=== PATIENT | male | born 1985 | race Two or more races ===

== ENCOUNTER 2019-06-30 14:18 | Inpatient (IN) | payer OTHER ==
--- NOTE | 2019-06-30 18:13 | HP ---
CIWA Score Nausea/Vomitin-No Nausea/No Vomiting Muscle Tremors: None Anxiety: 1-Mildly Anxious Agitation: 1-Slight > Activity Paroxysmal Sweats: No Perspiration Orientation: 0-Oriented Tacttile Disturbances: 0-None Auditory Disturbances: 0-None Visual Disturbances: 0-None Headache: 0-None Present CIWA-Ar Total Score: 2 - Admission Criteria OASAS Guidelines: Admission for Medically Managed Detox: Requires at least one of the followin. CIWA greater than 12 2. Seizures within the past 24 hours 3. Delirium tremens within the past 24 hours 4. Hallucinations within the past 24 hours 5. Acute intervention needed for co occurring medical disorder 6. Acute intervention needed for co occurring psychiatric disorder 7. Severe withdrawal that cannot be handled at a lower level of care (continued vomiting, continued diarrhea, abnormal vital signs) requiring intravenous medication and/or fluids 8. Admission ROS S - HPI Allergies/Adverse Reactions: Allergies Allergy/AdvReac Type Severity Reaction Status Date / Time heparin AdvReac Intermediate Hives Verified 06/30/19 15:54 History of Present Illness: pt here requesting rehab for cannabis use, reports was at [facility] for chest pain , d/c Saturday06/26/19 , referred to this facility . cannabis - 3.5 gr/day since age 13 , latest use yesterday , reports daily use , latest use yesterday . crystal metamphetamine : 1 gr/day ivdu in khanh hands / arms/ legs x 4 years , needles / alcohol pads and sharps container from [employer] , denies sharing , denies re-using , reports had DE in 2016 [facility] in May , had cardiac stenting x 2 , moved to [place] August 2017 had CABG x 2 [facility] December 2017 , relapsed March 2018 has been using since , latest use 3 days ago ( Saturday morning ) etoh - reports 3 x/week 1 large bottle of liquor , denies symptoms if not drinking , latest use Saturday , currently asymptomatic . Reports he went to inpt in 2016 in [facility] after having DE , left after 4 days , relapsed . Reports left hospital AMA with IV in arm for access for IVDU crystal meth , continued use through IV x 2 days before self- removing it. 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 Search Terms: haider grider, 1985 Search Date: 06/30/2019 07:14:01 PM This report was requested by: Azucena Carlos | Reference #: [id number] Others' Prescriptions Patient Name: Haider Grider Date: 1985 Address: [address] [place] [address] Sex: Male Rx Written Rx Dispensed Drug Quantity Days Supply Prescriber Name 03/09/2019 03/09/2019 codeine sulfate 15 mg tablet 24 4 Kenea Munoz Exam Limitations: No Limitations - Ebola screening Have you traveled outside of the country in the last 21 days: No Have you had contact with anyone from an Ebola affected area: No Do you have a fever: No - Review of Systems Constitutional: No Symptoms Reported EENT: reports: No Symptoms Reported Respiratory: reports: No Symptoms reported Cardiac: reports: See HPI GI: reports: No Symptoms Reported : reports: No Symptoms Reported Musculoskeletal: reports: No Symptoms Reported Integumentary: reports: See HPI Neuro: reports: No Symptoms reported Endocrine: reports: See HPI Psychiatric: reports: Orientated x3 Patient History - Smoking Cessation Smoking history: Current every day smoker Have you smoked in the past 12 months: Yes Hx Chewing Tobacco Use: No Initiated information on smoking cessation: No - Substances abused Crystal meth Substance route: Injection Frequency: Daily Amount used: 1 gram Age of first use: 29 Date of last use: 06/26/19 Marijuana/Hashish Substance route: Oral Frequency: Daily Amount used: $25 Age of first use: 13 Date of last use: 06/29/19 Alcohol Substance route: Oral Frequency: 3-6 times per week Amount used: 40 oz Cognac Age of first use: 13 Date of last use: 06/27/19 Family Disease History - Family Disease History Family Disease History: Diabetes: Mother (d. 60 , hn , dementia ), Other: Father (d. unknown , ), Mother, Sister (3 sisters A & W , 1 sister w/ ETOH abuse ) Other Family History: no children Admission Physical Exam BHS - Vital Signs Vital Signs: Vital Signs - 24 hr 06/30/19 15:50 Temperature 98.4 F Pulse Rate 103 H Respiratory 18 Rate Blood Pressure 122/90 - Physical General Appearance: Yes: Intoxicated HEENTM: Yes: EOMI, Hearing grossly Normal, Normocephalic, Normal Voice Respiratory: Yes: Chest Non-Tender, Lungs Clear, Normal Breath Sounds, No Respiratory Distress, No Accessory Muscle Use Neck: Yes: No masses,lesions,Nodules, Trachea in good position Cardiology: Yes: Regular Rhythm, Regular Rate, S1, S2, Tachycardia, Surgical Scar (midline sternal) Abdominal: Yes: Non Tender Musculoskeletal: Yes: full range of Motion, Gait Steady Extremities: Yes: Normal Range of Motion, Non-Tender Neurological: Yes: Fully Oriented, Alert, Motor Strength 5/5, Normal Mood/Affect Integumentary: Yes: Warm, Track Briggs (khanh UE . LE) - Diagnostic (1) Cannabis dependence Current Visit: Yes Status: Acute (2) Alcohol abuse, episodic Current Visit: Yes Status: Acute (3) History of methamphetamine abuse Current Visit: Yes Status: Acute (4) Nicotine dependence Current Visit: Yes Status: Chronic Qualifiers: Nicotine product type: cigarettes Breathalyzer - Breathalyzer Breathalyzer: 0 Urine Drug Screen - Test Device Lot number: [id number] Expiration date: 03/31/21 - Control Is test valid?: Yes - Results Drug screen NEGATIVE: No Urine drug screen results: THC-Marijuana Inpatient Rehab Admission - Rehab Decision to Admit Inpatient rehab admission?: Yes - Initial Determination Are CD services needed?: Yes Free of communicable disease: Yes Not in need of hospitalization: Yes - Rehab Admission Criteria Previous failed treatment: No Poor recovery environment: No Comorbidities: No Lacks judgement: Yes Patient is meeting Inpatient Rehab admission criteria:: Yes
[2019-06-30] MEDS ORDERED: NITROGLYCERIN SUBLINGUAL 1/200 0.3 MG BTL SL PRN (18:49)
[2019-06-30] MEDS ORDERED: MAGNESIUM CITRATE 300 ML BOTTLE PO PRN (18:50)
[2019-06-30] MEDS ORDERED: P-EPHED 60MG/TRIPROLIDI 2.5MG TABLET PO PRN (18:50)
[2019-06-30] MEDS ORDERED: guaiFENesin 200 MG/10 ML 10 ML UNIT-DOSE CUPS PO PRN (18:50)
[2019-06-30] MEDS ORDERED: MAG HYDROX/AL HYDROX/SIMETH 30 ML UNIT-DOSE CUP PO PRN (18:50)
[2019-06-30] MEDS ORDERED: MENTHOL/PHENOL 1 EACH UD MM PRN (18:50)
[2019-06-30] MEDS ORDERED: MAGNESIUM HYDROX 2400MG/30ML ORAL SUSPENSION 30 ML CUP PO PRN (18:50)
[2019-06-30] MEDS ORDERED: NICOTINE POLACRILEX 2 MG GUM BUC PRN (18:55)
[2019-06-30] MEDS: CLOPIDOGREL BISULFATE 75 MG TABLET (FP) PO SCH (20:42)
[2019-06-30] MEDS: ASPIRIN 81 MG CHEWABLE TABLETS PO SCH (20:42)
[2019-06-30] MEDS: LISINOPRIL 5 MG TABLET (FP) PO SCH (20:42)
[2019-06-30] MEDS: ATORVASTATIN CA 80 MG TABLET (FP) PO SCH (21:03)
[2019-06-30] MEDS: THIAMINE HCL 100 MG TABLET (FP) PO SCH (23:32)
[2019-06-30] MEDS: EMTRICITABINE/TENOFOV ALAFENAM (DESCOVY) TABLET PO SCH (23:32)
[2019-06-30] MEDS: DOLUTEGRAVIR SODIUM 50 MG TABLET (NON-FORMULARY) PO SCH (23:32)
[2019-07-01] MEDS: MELATONIN 5 MG TABLETS PO PRN ×2 (00:37→21:22)
[2019-07-01] MEDS: hydrOXYzine PAMOATE 25 MG CAPSULE (FP) PO PRN ×3 (00:37→21:23)
[2019-07-01] MEDS: metFORMIN HCL 500 MG TABLET (FP) PO SCH (07:05)
[2019-07-01] MEDS: LISINOPRIL 5 MG TABLET (FP) PO SCH (10:13)
[2019-07-01] MEDS: ISOSORBIDE MONONITRATE 30 MG TAB.SR.24H (FP) PO SCH (10:13)
[2019-07-01] MEDS: PRENATAL VITAMINS W/ FOLIC ACID TABLET (FP) PO SCH (10:13)
[2019-07-01] MEDS: CLOPIDOGREL BISULFATE 75 MG TABLET (FP) PO SCH (10:13)
[2019-07-01] MEDS: ASPIRIN 81 MG CHEWABLE TABLETS PO SCH (10:13)
[2019-07-01] MEDS: DOLUTEGRAVIR SODIUM 50 MG TABLET (NON-FORMULARY) PO SCH (10:14)
[2019-07-01] MEDS: EMTRICITABINE/TENOFOV ALAFENAM (DESCOVY) TABLET PO SCH (10:14)
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
[2019-07-01] MEDS: THIAMINE HCL 100 MG TABLET (FP) PO SCH (21:21)
[2019-07-01] MEDS: ATORVASTATIN CA 80 MG TABLET (FP) PO SCH (21:21)
[2019-07-02] MEDS: metFORMIN HCL 500 MG TABLET (FP) PO SCH (07:21)
[2019-07-02] MEDS: ASPIRIN 81 MG CHEWABLE TABLETS PO SCH (09:17)
[2019-07-02] MEDS: CLOPIDOGREL BISULFATE 75 MG TABLET (FP) PO SCH (09:17)
[2019-07-02] MEDS: PRENATAL VITAMINS W/ FOLIC ACID TABLET (FP) PO SCH (09:18)
[2019-07-02] MEDS: ACETAMINOPHEN 325 MG TABLET (FP) PO PRN (09:23)
[2019-07-02] MEDS: hydrOXYzine PAMOATE 25 MG CAPSULE (FP) PO PRN ×2 (09:24→21:14)
[2019-07-02] MEDS: DOLUTEGRAVIR SODIUM 50 MG TABLET (NON-FORMULARY) PO SCH (09:24)
[2019-07-02] MEDS: ISOSORBIDE MONONITRATE 30 MG TAB.SR.24H (FP) PO SCH (09:25)
[2019-07-02] MEDS: EMTRICITABINE/TENOFOV ALAFENAM (DESCOVY) TABLET PO SCH (09:25)
[2019-07-02] MEDS: LISINOPRIL 5 MG TABLET (FP) PO SCH (09:27)
[2019-07-02] MEDS: ATORVASTATIN CA 80 MG TABLET (FP) PO SCH (21:13)
[2019-07-02] MEDS: THIAMINE HCL 100 MG TABLET (FP) PO SCH (21:13)
[2019-07-02] MEDS: MELATONIN 5 MG TABLETS PO PRN (21:13)
[2019-07-03] MEDS: ISOSORBIDE MONONITRATE 30 MG TAB.SR.24H (FP) PO SCH (09:15)
[2019-07-03] MEDS: ASPIRIN 81 MG CHEWABLE TABLETS PO SCH (09:15)
[2019-07-03] MEDS: CLOPIDOGREL BISULFATE 75 MG TABLET (FP) PO SCH (09:15)
[2019-07-03] MEDS: PRENATAL VITAMINS W/ FOLIC ACID TABLET (FP) PO SCH (09:15)
[2019-07-03] MEDS: LISINOPRIL 5 MG TABLET (FP) PO SCH (09:15)
[2019-07-03] MEDS: hydrOXYzine PAMOATE 25 MG CAPSULE (FP) PO PRN (09:17)
[2019-07-03] MEDS: DOLUTEGRAVIR SODIUM 50 MG TABLET (NON-FORMULARY) PO SCH (09:17)
[2019-07-03] MEDS: EMTRICITABINE/TENOFOV ALAFENAM (DESCOVY) TABLET PO SCH (09:17)
[2019-07-03] MEDS: ACETAMINOPHEN 325 MG TABLET (FP) PO PRN ×2 (09:18→17:21)
[2019-07-03 11:49] LABS: HEMATOCRIT 38.1 % (35.4-49); HEMOGLOBIN 12.5 GM/dL (11.7-16.9); MCHC 32.9 g/dl (32.0-35.9); MEAN CELL VOLUME 84.9 fl (80-96); MEAN PLT VOLUME 8.9 fl (7.5-11.1); RBC 4.49 M/mm3 (4.00-5.60); RDW 15.1 % (11.9-15.9); WHITE BLOOD COUNT 7.7 K/mm3 (4.0-10.0)
[2019-07-03 12:05] LABS: ALBUMIN 3.4 g/dl (3.4-5.0); BILIRUBIN,TOTAL 0.3 mg/dL (0.2-1); BLOOD UREA NITROGEN 7.9 mg/dL (7-18); CALCIUM 8.9 mg/dL (8.5-10.1); CREATININE 0.9 mg/dL (0.55-1.3); POTASSIUM 3.9 mmol/L (3.5-5.1); TOT PROT 6.9 g/dl (6.4-8.2)
[2019-07-03 12:14] LABS: PLATELET COUNT 266 K/MM3 (134-434)
[2019-07-03 12:51] LABS: EPI CELLS 1.5 /HPF (0-5/HPF); HYALINE CASTS 1 /lpf (0-8); PH,URINE 5.5 (5.0-8.0); URINE APPEARANCE CLEAR; URINE BILIRUBIN NEGATIVE (NEGATIVE); URINE COLOR YELLOW; URINE GLUCOSE (UA) NEGATIVE (NEGATIVE); URINE KETONE NEGATIVE (NEGATIVE); URINE LEUK ESTERASE 1+ (NEGATIVE); URINE NITRITE NEGATIVE (NEGATIVE); URINE PROTEIN NEGATIVE (NEGATIVE); URINE RBC 0 /hpf (0-4); URINE UROBILINOGEN 0.2 mg/dL (0.2-1.0); URINE WBC 13 /hpf (0-5)
[2019-07-03] MEDS ORDERED: LIDOCAINE 5% TOPICAL PATCH TP SCH (14:15)
[2019-07-03 16:22] VITALS: BP 151/99; PULSE 99; TEMP 98.3
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
[2019-07-03] MEDS ORDERED: LIDOCAINE PATCH REMOVAL MC SCH (22:00)
[2019-07-03] MEDS: THIAMINE HCL 100 MG TABLET (FP) PO SCH (22:08)
[2019-07-03] MEDS: ATORVASTATIN CA 80 MG TABLET (FP) PO SCH (22:08)
== END 2019-07-04 08:45 | disposition short-term general hospital (02) | DRG 772 ==
LOC: YASAS 14:18 → Y5N 19:15
PROVIDERS: ADMIT Neuromusculoskeletal Medicine & OMM; ATTEND Neuromusculoskeletal Medicine & OMM
PROC: HZ42ZZZ Group Counseling for Substance Abuse Treatment, Cognitive-Behavioral (ICD-10-PCS; principal; 2019-06-30)
DX: F12.20 Cannabis dependence, uncomplicated (principal); F10.10 Alcohol abuse, uncomplicated; F15.10 Other stimulant abuse, uncomplicated; F17.210 Nicotine dependence, cigarettes, uncomplicated; F19.24 Other psychoactive substance dependence with psychoactive substance-induced mood disorder; Y04.2XXA Assault by strike against or bumped into by another person, initial encounter
CPT/HCPCS: 36415; 80053; 81003; 85027; 86480; 86593

== ENCOUNTER 2019-07-03 18:12 | Emergency (ER) | payer OTHER ==
[2019-07-03 18:32] VITALS: BMI 28.1
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
[2019-07-03] MEDS ORDERED: ACETAMINOPHEN 325 MG TABLET (FP) PO ONE (19:45)
[2019-07-03] MEDS ORDERED: ACETAMINOPHEN 325 MG TABLET (FP) ONE (20:00)
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
[2019-07-03] MEDS ORDERED: morphine CARPU-JECT 2 MG/1 ML DISP.SYRIN IVPUSH ONE (22:13)
[2019-07-03 22:16] LABS: BASO % 1.1 % (0-2.0); EOS % 5.4 % (0-4.5); HEMATOCRIT 35.9 % (35.4-49); HEMOGLOBIN 11.9 GM/dL (11.7-16.9); LYMPH % 17.9 % (8-40); MCH 28.1 pg (25.7-33.7); MCHC 33.2 g/dl (32.0-35.9); MEAN CELL VOLUME 84.6 fl (80-96); MEAN PLT VOLUME 8.3 fl (7.5-11.1); MONO % 7.7 % (3.8-10.2); NEUT % 67.9 % (42.8-82.8); PLATELET COUNT 246 K/MM3 (134-434); RBC 4.24 M/mm3 (4.00-5.60); RDW 14.7 % (11.9-15.9); WHITE BLOOD COUNT 9.6 K/mm3 (4.0-10.0)
[2019-07-03] MEDS ORDERED: MORPHINE SULFATE 2 MG/ML VIAL ONE (22:16)
[2019-07-03 22:32] LABS: INR 1.05 (0.83-1.09); PROTHROMBIN TIME (PATIENT) 12.4 SEC (9.7-13.0)
[2019-07-03 22:34] LABS: ACTIVATED PTT 26.9 SECONDS (25.2-36.5)
[2019-07-03 22:57] LABS: ALBUMIN 3.3 g/dl (3.4-5.0); BILIRUBIN,TOTAL 0.2 mg/dL (0.2-1); BLOOD UREA NITROGEN 11.4 mg/dL (7-18); CALCIUM 8.9 mg/dL (8.5-10.1); CREATININE 0.9 mg/dL (0.55-1.3); POTASSIUM 4.3 mmol/L (3.5-5.1); TOT PROT 6.6 g/dl (6.4-8.2)
[2019-07-04 05:49] VITALS: BP 142/83; PULSE 76; TEMP 98.2
== END 2019-07-03 22:45 | disposition short-term general hospital (02) ==
LOC: JER 18:12
PROC: 3E033NZ Introduction of Analgesics, Hypnotics, Sedatives into Peripheral Vein, Percutaneous Approach (ICD-10-PCS; principal; 2019-07-03)
DX: H05.332 Deformity of left orbit due to trauma or surgery (principal); Y04.2XXA Assault by strike against or bumped into by another person, initial encounter; Y93.89 Activity, other specified; Y92.238 Other place in hospital as the place of occurrence of the external cause; Y99.8 Other external cause status; Y07.9 Unspecified perpetrator of maltreatment and neglect; I25.10 Atherosclerotic heart disease of native coronary artery without angina pectoris; I11.0 Hypertensive heart disease with heart failure; I25.2 Old myocardial infarction; E11.9 Type 2 diabetes mellitus without complications; Z79.84 Long term (current) use of oral hypoglycemic drugs; J44.9 Chronic obstructive pulmonary disease, unspecified; Z79.01 Long term (current) use of anticoagulants; Z21 Asymptomatic human immunodeficiency virus [HIV] infection status; F15.10 Other stimulant abuse, uncomplicated
CPT/HCPCS: 36415; 70450-TC; 70486-TC; 80053; 85025; 85610; 85730; 96374; 99284-25

== ENCOUNTER 2019-07-04 14:43 | Inpatient (IN) | payer OTHER ==
[2019-07-04 15:39] VITALS: BMI 28.1
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
[2019-07-04] MEDS ORDERED: ACETAMINOPHEN 325 MG TABLET (FP) PO PRN (16:28)
[2019-07-04] MEDS ORDERED: P-EPHED 60MG/TRIPROLIDI 2.5MG TABLET PO PRN (16:28)
[2019-07-04] MEDS ORDERED: MAGNESIUM HYDROX 2400MG/30ML ORAL SUSPENSION 30 ML CUP PO PRN (16:28)
[2019-07-04] MEDS ORDERED: guaiFENesin 200 MG/10 ML 10 ML UNIT-DOSE CUPS PO PRN (16:28)
[2019-07-04] MEDS ORDERED: MAGNESIUM CITRATE 300 ML BOTTLE PO PRN (16:28)
[2019-07-04] MEDS ORDERED: LOPERAMIDE HCL 2 MG CAPSULE PO PRN (16:28)
[2019-07-04] MEDS ORDERED: MAG HYDROX/AL HYDROX/SIMETH 30 ML UNIT-DOSE CUP PO PRN (16:28)
[2019-07-04] MEDS ORDERED: MENTHOL/PHENOL 1 EACH UD MM PRN (16:28)
[2019-07-04] MEDS ORDERED: IBUPROFEN 600 MG TABLET (FP) PO PRN (16:31)
[2019-07-04] MEDS: IBUPROFEN 400 MG TABLET (FP) PO PRN (18:17)
[2019-07-04] MEDS ORDERED: ATORVASTATIN CA 20 MG TABLET (FP) ONE (20:36)
[2019-07-04] MEDS ORDERED: MELATONIN 5 MG TABLETS PO PRN (22:00)
[2019-07-04] MEDS: THIAMINE HCL 100 MG TABLET (FP) PO SCH (22:10)
[2019-07-04] MEDS: AMOX TR/POT CLAV 875MG/125MG TABLETS (FP) PO SCH (22:10)
[2019-07-04] MEDS: hydrOXYzine PAMOATE 50 MG CAPSULE (FP) PO PRN (22:10)
[2019-07-04] MEDS: ATORVASTATIN CA 40 MG TABLET (FP) PO SCH (22:11)
[2019-07-04] MEDS: OXYMETAZOLINE 0.05% NASAL SOLUTION 15 ML BOTTLE NS SCH (22:12)
[2019-07-05] MEDS: PRENATAL VITAMINS W/ FOLIC ACID TABLET (FP) PO SCH (09:16)
[2019-07-05] MEDS: ASPIRIN 81 MG CHEWABLE TABLETS PO SCH (09:16)
[2019-07-05] MEDS: AMOX TR/POT CLAV 875MG/125MG TABLETS (FP) PO SCH ×2 (09:16→22:33)
[2019-07-05] MEDS: LISINOPRIL 5 MG TABLET (FP) PO SCH (09:16)
[2019-07-05] MEDS: CLOPIDOGREL BISULFATE 75 MG TABLET (FP) PO SCH (09:16)
[2019-07-05] MEDS: OXYMETAZOLINE 0.05% NASAL SOLUTION 15 ML BOTTLE NS SCH ×2 (09:16→22:33)
[2019-07-05] MEDS: EMTRICITABINE/TENOFOV ALAFENAM (DESCOVY) TABLET PO SCH (09:17)
[2019-07-05] MEDS: DOLUTEGRAVIR SODIUM 50 MG TABLET (NON-FORMULARY) PO SCH (09:17)
[2019-07-05] MEDS: IBUPROFEN 400 MG TABLET (FP) PO PRN (09:19)
[2019-07-05] MEDS: hydrOXYzine PAMOATE 50 MG CAPSULE (FP) PO PRN ×2 (09:20→22:35)
[2019-07-05] MEDS ORDERED: ATORVASTATIN CA 20 MG TABLET (FP) ONE (20:29)
[2019-07-05] MEDS: ATORVASTATIN CA 40 MG TABLET (FP) PO SCH (22:33)
[2019-07-05] MEDS: THIAMINE HCL 100 MG TABLET (FP) PO SCH (22:33)
[2019-07-06 07:29] VITALS: TEMP 98
[2019-07-06] MEDS: AMOX TR/POT CLAV 875MG/125MG TABLETS (FP) PO SCH (10:42)
[2019-07-06] MEDS: LISINOPRIL 5 MG TABLET (FP) PO SCH ×2 (10:42→11:11)
[2019-07-06] MEDS: CLOPIDOGREL BISULFATE 75 MG TABLET (FP) PO SCH (10:42)
[2019-07-06] MEDS: ASPIRIN 81 MG CHEWABLE TABLETS PO SCH (10:42)
[2019-07-06] MEDS: PRENATAL VITAMINS W/ FOLIC ACID TABLET (FP) PO SCH (10:43)
[2019-07-06] MEDS: EMTRICITABINE/TENOFOV ALAFENAM (DESCOVY) TABLET PO SCH (10:44)
[2019-07-06] MEDS: DOLUTEGRAVIR SODIUM 50 MG TABLET (NON-FORMULARY) PO SCH (10:44)
[2019-07-06] MEDS: OXYMETAZOLINE 0.05% NASAL SOLUTION 15 ML BOTTLE NS SCH (10:44)
[2019-07-06] MEDS: hydrOXYzine PAMOATE 50 MG CAPSULE (FP) PO PRN (13:09)
[2019-07-06] MEDS: IBUPROFEN 400 MG TABLET (FP) PO PRN (13:09)
[2019-07-06 15:58] VITALS: BP 120/74; PULSE 62
--- NOTE | 2019-07-06 20:36 | PN ---
[facility] Progress Note Note: Pt states he wants to leave and walked out of the unit. The chart was closed and so no discharge meds were sent out for patient.
== END 2019-07-06 20:00 | disposition left against medical advice (07) | DRG 770 ==
LOC: YASAS 14:43 → Y5N 16:52 → UNDODISIN 07-06 20:00
PROVIDERS: ADMIT Neuromusculoskeletal Medicine & OMM; ATTEND Neuromusculoskeletal Medicine & OMM
PROC: HZ42ZZZ Group Counseling for Substance Abuse Treatment, Cognitive-Behavioral (ICD-10-PCS; principal; 2019-07-04)
DX: F10.20 Alcohol dependence, uncomplicated (principal); F12.20 Cannabis dependence, uncomplicated; F15.10 Other stimulant abuse, uncomplicated; F17.210 Nicotine dependence, cigarettes, uncomplicated
CPT/HCPCS: 36415; 70450-TC; 70486-TC; 80053; 85025; 85610; 85730; 96374; 99284-25